=== PATIENT | female | born 1960 | race Caucasian/White ===

== ENCOUNTER → 2019-06-20 | Outpatient (REF) | payer BC ==
[2019-06-20 13:40] LABS: TOTAL PROTEIN 6.8 GM/DL (6.4-8.2)
[2019-06-20 13:52] LABS: PTH INTACT 90.1 PG/ML (18.5-88.0); VITAMIN B12 LEVEL 576 PG/ML
[2019-06-21 12:46] LABS: ALBUMIN 4.49 GM/DL (3.29-5.55); ALPHA-1-GLOBULIN % 3.6 % (2.9-4.9); ALPHA-1-GLOBULINS 0.24 GM/DL (0.17-0.41); ALPHA-2-GLOBULINS % 8.4 % (7.1-11.8); BETA-1-GLOBULINS % 5.4 % (4.7-7.2); BETA-2-GLOBULINS % 4.1 % (3.2-6.5); GAMMA GLOBULIN % 12.5 % (11.1-18.8)
[2019-06-21 12:47] LABS: ALPHA-2-GLOBULINS 0.57 GM/DL (0.42-0.99); BETA-1-GLOBULINS 0.37 GM/DL (0.28-0.60); BETA-2-GLOBULINS 0.28 GM/DL (0.19-0.55); GAMMA GLOBULINS 0.85 GM/DL (0.65-1.58)
== END ==
LOC: M LABNEURO 09:45
PROVIDERS: ATTEND Psychiatry & Neurology Neurology
DX: R25.3 Fasciculation (principal)

== ENCOUNTER → 2019-07-11 | Outpatient (REF) | payer BC | LOC: M LABNEURO 13:31 | PROVIDERS: ATTEND Psychiatry & Neurology Neurology | DX: R25.3 Fasciculation (principal) ==

== ENCOUNTER → 2019-09-18 | Outpatient (REF) | payer BC | LOC: M LAB LCGH 11:29 | PROVIDERS: ATTEND Obstetrics & Gynecology | DX: Z00.01 Encounter for general adult medical examination with abnormal findings (principal) ==

== ENCOUNTER → 2020-04-16 | Outpatient (REF) | payer BC ==
[~2020-04-16] MED LIST: ADV500INH INH; COMBAER6 INH; D31000TA2 PO; ESTR1TAB PO; FLUT1BLS6 INH; LEVO137T2 PO; METO1TAB32 PO; PRAM1TAB7 PO; PROG1CAP8 PO
== END ==
LOC: M LABDRWAD 14:00
PROVIDERS: ATTEND Internal Medicine Endocrinology, Diabetes & Metabolism
DX: E03.9 Hypothyroidism, unspecified (principal)

== ENCOUNTER 2020-06-05 12:31 | Day surgery (SDC) | payer BC ==
[~2020-06-05] VITALS: Ht 167.6 cm; Wt 81.6 kg
[~2020-06-05 12:31] MED LIST changes: -D31000TA2 PO; +LR 1,000 ML IV ONE; +ceFAZolin SOD 2 GM in IV 1 EA IV ONE
[2020-06-05] MEDS ORDERED: MIDAZOLAM INJ 2MG/2ML VIAL (J2250 PER 1MG) As Ordered ONE (13:01)
[2020-06-05] MEDS ORDERED: propofoL 500 MG/50 ML VIAL As Ordered ONE (13:02)
[2020-06-05] MEDS ORDERED: fentaNYL 100 MCG/2 ML INJECTION (J3010) As Ordered ONE (13:04)
[2020-06-05] MEDS ORDERED: LIDOCAINE 1% SDV 30ML VIAL As Ordered ONE (13:28)
[2020-06-05] MEDS ORDERED: ceFAZolin 1GM VIAL (J0690 PER 500MG) As Ordered ONE (13:28)
[2020-06-05] MEDS ORDERED: LIDOCAINE 2% 100MG/5ML SDV (FOR ANES.) As Ordered ONE (13:54)
[2020-06-05] MEDS ORDERED: dexameTHASONE 4 MG/ML 1ML VIAL (J1100 PER 1MG) As Ordered ONE (13:58)
[2020-06-05] MEDS ORDERED: diphenhydrAMINE 50MG/ML VIAL (J1200) As Ordered ONE (14:00)
[2020-06-05] MEDS ORDERED: ONDANSETRON 4MG/2ML VIAL IV PRN (15:15)
[2020-06-05] MEDS ORDERED: oxyCODONE 5MG TAB PO PRN (15:15)
[2020-06-05] MEDS ORDERED: METOCLOPRAMIDE INJ 10MG/2ML VIAL (J2765 PER 1) IV PRN (15:15)
[2020-06-05] MEDS ORDERED: LR 1,000 ML IV SCH (15:15)
--- NOTE | 2020-06-05 15:36 | REP ---
INDICATION: NUEROSTIM STAGE 1 PLACEMENT OF LEAD COMPARISON: None. TECHNIQUE: Images obtained using portable C-arm technique FINDINGS: Neurostimulator lead identified overlying the right irina sacrum. Total fluoroscopic time 44 seconds IMPRESSION: Status post neurostimulator lead placement. <Electronically signed by Robert Guardado > 06/05/20 [id number]
[2020-06-05 15:45] VITALS: BP 119/73
[2020-06-05] MEDS ORDERED: ACETAMINOPHEN 500 MG TAB As Ordered ONE (15:51)
[2020-06-05] MEDS ORDERED: ACETAMINOPHEN 500 MG TAB PO SCH (16:00)
--- NOTE | 2020-06-06 15:48 | RO ---
DATE OF OPERATION: 06/05/2020 PREOPERATIVE DIAGNOSIS/INDICATION FOR SURGERY: Incontinence, failed other methods. POSTOPERATIVE DIAGNOSIS: Incontinence, failed other methods. PROCEDURE: Stage 1 Neurostim placement, programming and x-ray localization, etc. SURGEON: Veronica Kim MD GARMENT PARTS CUTTER MACHINE: None. ANESTHESIA: Sedation and local. SPECIMEN: None. FLUID REPLACEMENT: Crystalloid. EBL: 1 mL. BRIEF DESCRIPTION OF PROCEDURE AND FINDINGS: Lianne was brought to the operating room where sufficient sedation and local were given. After measuring and numbing needle placement in sacral nerve root 3 was accomplished. Initially it looked like we might be in 2, used that placement to find the next down and that seemed to be actually 4 based on her response and response to her placement itself was quite effective so she does have foot with toe but no angulation, no knee reaction, no twisting or turning and good anselmo. We used the patients left side sacral nerve root 3 and placed the tined lead and connected it to the extension. We made lateral pocket and then extended that out to the flank in the normal fashion. We closed the wounds carefully, two layers over the site of the future pocket if this test is effective. We then placed dry, sterile dressings at the end of the procedure and the procedure was ended. Estimated blood loss about 1 mL. Fluid replacement was Crystalloid. No complications. CONDITION AND DISPOSITION: Lianne tolerated the procedure well and was recovering in the recovery room in good condition. LIAM
[2020-06-11] MEDS ORDERED: D31000TA2 PO (10:31)
== END 2020-06-05 16:36 | disposition home or self-care (01) ==
LOC: M SDC 12:31
PROVIDERS: ATTEND Obstetrics & Gynecology
DX: R32 Unspecified urinary incontinence (principal); I10 Essential (primary) hypertension; E03.9 Hypothyroidism, unspecified; J45.909 Unspecified asthma, uncomplicated; Z79.899 Other long term (current) drug therapy; Z91.040 Latex allergy status
CPT/HCPCS: 64581; 76000; C1778; C1883; C1894; J0690; J1100; J1200; J2250; J3010; U0002

== ENCOUNTER → 2020-06-09 | Outpatient (CLI) | payer BC ==
[~2020-06-09] MED LIST changes: +D31000TA2 PO; -LR 1,000 ML IV ONE; -ceFAZolin SOD 2 GM in IV 1 EA IV ONE
== END ==
LOC: M LABSMTC 09:19
PROVIDERS: ATTEND Anesthesiology
DX: Z01.812 Encounter for preprocedural laboratory examination (principal); Z20.828 Contact with and (suspected) exposure to other viral communicable diseases
CPT/HCPCS: C9803; U0003

== ENCOUNTER 2020-06-12 14:21 | Day surgery (SDC) | payer BC ==
[~2020-06-12] VITALS: Ht 170.2 cm; Wt 81.2 kg
[~2020-06-12 14:21] MED LIST changes: +LIDOCAINE 1% MDV 20ML VIAL SQ PRN; +LR 1,000 ML IV ONE; +ceFAZolin SOD 2 GM in IV 1 EA IV ONE
[2020-06-12] MEDS ORDERED: MIDAZOLAM INJ 2MG/2ML VIAL (J2250 PER 1MG) As Ordered ONE (19:10)
[2020-06-12] MEDS ORDERED: propofoL 200 MG/20 ML VIAL As Ordered ONE ×2 (19:10→20:22)
[2020-06-12] MEDS ORDERED: LIDOCAINE 2% 100MG/5ML SDV (FOR ANES.) As Ordered ONE (19:10)
[2020-06-12] MEDS ORDERED: fentaNYL 100 MCG/2 ML INJECTION (J3010) As Ordered ONE (19:10)
[2020-06-12] MEDS ORDERED: ONDANSETRON 4MG/2ML VIAL As Ordered ONE (19:10)
[2020-06-12] MEDS ORDERED: LIDOCAINE 1% SDV 30ML VIAL As Ordered ONE (19:47)
[2020-06-12] MEDS ORDERED: ceFAZolin 1GM VIAL (J0690 PER 500MG) As Ordered ONE (19:47)
[2020-06-12 21:20] VITALS: BP 132/80
--- NOTE | 2020-06-13 11:02 | RO ---
DATE OF OPERATION: 06/12/2020 PREOPERATIVE DIAGNOSIS/INDICATION FOR SURGERY: Successful stage 1 Neurostim for incontinence. POSTOPERATIVE DIAGNOSIS: Successful stage 1 Neurostim for incontinence. PROCEDURE: Removal of the temporary extension, implant of permanent Neurostim rechargeable unit and programming. SURGEON: Veronica Kim MD INDUSTRIAL MAINTENANCE TECH: None. ANESTHESIA: Sedation and local. SPECIMEN: None. ESTIMATED BLOOD LOSS: About 1 mL. FLUID REPLACEMENT: Crystalloid. DRAINS: None. COMPLICATIONS: None. BRIEF DESCRIPTION OF PROCEDURE AND FINDINGS: Angélica was brought to the operating room where sufficient sedation was given. She was prepped in the usual fashion; prone as is done with these; and then numbed with 1% lidocaine. And after that had been given time to set up, an incision was made over the previous incision for the extension and generator. The wound was opened. The connection to the extension and temporary Neurostim was elevated. This was disconnected. We cut the cover off the extension leads so we could pull that out distally and then with a clean, non-infected pocket noted went ahead and connected the new implantable Neurostim to the tined lead. We then extended the pocket for placement of the implant and further created a better size pocket for this, used the cautery as needed, then irrigated with antibiotic irrigant, and then placed the [employer] Neurostim in the usual orientation. Impedence was tested in the room. It was good. I then closed the pocket with two-layer closure; the deep layer with 2-0 Vicryl and the skin with 3-0 Vicryl in a subcuticular stitch with good approximation and hemostasis at both layers, and dry, sterile dressing was then applied. The stitches just from the other stage 1 procedure were also just removed while she was in the OR and, of course as already mentioned, the previous temporary Neurostim had been removed. We then, of course, did programming, etc. The patient was recovering postop in good condition. As already mentioned, she had no complications. LIAM
== END 2020-06-12 21:24 | disposition home or self-care (01) ==
LOC: M SDC 14:21
PROVIDERS: ATTEND Obstetrics & Gynecology
DX: Z45.42 Encounter for adjustment and management of neurostimulator (principal); R32 Unspecified urinary incontinence; I10 Essential (primary) hypertension; E03.9 Hypothyroidism, unspecified; J45.909 Unspecified asthma, uncomplicated; Z79.899 Other long term (current) drug therapy; Z91.040 Latex allergy status
CPT/HCPCS: 64590; C1820; J0690; J2250; J2405; J3010

== ENCOUNTER → 2020-09-12 | Outpatient (CLI) | payer BC ==
[~2020-09-12] MED LIST changes: -LIDOCAINE 1% MDV 20ML VIAL SQ PRN; -LR 1,000 ML IV ONE; -ceFAZolin SOD 2 GM in IV 1 EA IV ONE
[2020-09-12 16:25] LABS: APPEARANCE, URINE CLEAR (CLEAR); BACTERIA, URINE AUTO NEGATIVE (NEGATIVE); BILIRUBIN, URINE AUTO NEGATIVE (NEGATIVE); BLOOD, URINE BLOOD NEGATIVE (NEGATIVE); CALCIUM OXALATE CRYSTALS SMALL; COLOR, URINE YELLOW (YELLOW); GLUCOSE, URINE (UA) AUTO NEGATIVE (NEGATIVE); KETONE, URINE AUTO TRACE mg/dL (NEGATIVE); LEUKOCYTE ESTERASE, URINE AUTO NEGATIVE (NEGATIVE); MUCUS, URINE SMALL (NEGATIVE); NITRITE, URINE AUTO NEGATIVE (NEGATIVE); PROTEIN, URINE AUTO NEGATIVE (NEGATIVE); RBC, URINE AUTO 1 /HPF (0-3); SPECIFIC GRAVITY URINE AUTO 1.024 (1.002-1.035); SQUAMOUS EPITHELIAL CELL UR AU 0 /HPF (0-6); UROBILINOGEN, URINE AUTO 0.2 mg/dL (0.0-2.0); WBC, URINE AUTO 1 /HPF (0-3)
[2020-09-12 16:36] LABS: BASO % 0.4 % (0.0-1.0); EOS # 0.2 10^3/uL (0.0-0.5); EOS % 1.9 % (0.0-3.0); HEMATOCRIT 43.5 % (36.0-47.0); HEMOGLOBIN 14.3 g/dl (12.0-15.5); LYMPH # 2.3 10^3/uL (1.5-5.0); LYMPH % 25.9 % (24.0-44.0); MEAN CORPUSCULAR HEMOGLOBIN 31.2 pg (27.0-33.0); MEAN CORPUSCULAR HGB CONC 32.9 g/dl (32.0-36.5); MEAN CORPUSCULAR VOLUME 94.8 fl (80.0-96.0); MONO # 0.6 10^3/uL (0.0-0.8); MONO % 6.6 % (0.0-5.0); NEUTROPHILS # 5.8 10^3/uL (1.5-8.5); NEUTROPHILS % 64.6 % (36.0-66.0); PLATELET COUNT, AUTOMATED 264 10^3/uL (150-450); RED BLOOD COUNT 4.59 10^6/uL (4.00-5.40)
[2020-09-12 17:07] LABS: ALBUMIN 3.7 GM/DL (3.2-5.2); ALT/SGPT 18 U/L (12-78); BILIRUBIN,TOTAL 0.3 MG/DL (0.2-1.0); BLOOD UREA NITROGEN 14 MG/DL (7-18); CALCIUM LEVEL 9.5 MG/DL (8.5-10.1); CARBON DIOXIDE LEVEL 32 MEQ/L (21-32); CHLORIDE LEVEL 104 MEQ/L (98-107); CHOLESTEROL LEVEL 249 MG/DL (<200); CHOLESTEROL RISK RATIO 4.788 (<5); CREATININE FOR GFR 0.89 MG/DL (0.55-1.30); GLOMERULAR FILTRATION RATE > 60.0 (>51); GLUCOSE, FASTING 108 MG/DL (70-100); HDL CHOLESTEROL 52 MG/DL (>40); NON-HDL-C 197 MG/DL; POTASSIUM SERUM 3.9 MEQ/L (3.5-5.1); SODIUM LEVEL 141 MEQ/L (136-145); THYROID STIMULATING HORMONE 0.547 uIU/ML (0.358-3.740); TOTAL PROTEIN 6.3 GM/DL (6.4-8.2); TRIGLYCERIDES LEVEL 405 MG/DL (<150)
== END ==
LOC: M WUC 12:41
PROVIDERS: ATTEND Internal Medicine
DX: Z00.01 Encounter for general adult medical examination with abnormal findings (principal); E03.9 Hypothyroidism, unspecified; I10 Essential (primary) hypertension

== ENCOUNTER → 2020-10-22 | Outpatient (CLI) | payer BC | LOC: M LABSMTC 10:22 | DX: Z11.52 Encounter for screening for COVID-19 (principal) ==

== ENCOUNTER → 2020-11-26 | Outpatient (CLI) | payer SELFPAY | LOC: M LABSMTC 14:31 | PROVIDERS: ATTEND Pediatrics | DX: Z11.52 Encounter for screening for COVID-19 (principal) ==

== ENCOUNTER → 2020-12-06 | Outpatient (CLI) | payer SELFPAY | LOC: M LABSMTC 08:00 | PROVIDERS: ATTEND Pediatrics | DX: Z11.52 Encounter for screening for COVID-19 (principal) ==

== ENCOUNTER → 2020-12-12 | Outpatient (CLI) | payer BC | LOC: M LABSMTC 09:32 | PROVIDERS: ATTEND Ophthalmology | DX: Z01.812 Encounter for preprocedural laboratory examination (principal); Z20.822 Contact with and (suspected) exposure to COVID-19 ==

== ENCOUNTER → 2021-07-18 | Outpatient (CLI) | payer BC | LOC: M LABSMTC 09:28 | PROVIDERS: ATTEND Pediatrics | DX: Z11.52 Encounter for screening for COVID-19 (principal) ==